=== PATIENT | male | born 1960 | race Two or more races ===

== ENCOUNTER 2016-09-02 04:11 | Emergency (ER) | payer BC, OTHER ==
--- NOTE | 2016-09-02 04:34 | PDOC ---
History of Present Illness - General History Source: Patient Exam Limitations: No Limitations - History of Present Illness Initial Comments: 09/02/16 04:55 The patient is a 56 year old male, with significant past medical history of HTN , who presents today via ambulance complaining of shortness of breath while out with friends drinking rum. The patient states that he cannot catch his breath or take in a full breath. He reports that this has happened to him before 1-2 months ago. He denies chest pain, cough. He denies abdominal pain. He denies fever, chills, nausea, vomiting. Allergies: none reported PCP- Dr. Phillip <Debra Ledezma - Last Filed: 09/02/16 04:55> <Madison Santos - Last Filed: 09/02/16 07:02> <Moira Dey - Last Filed: 09/02/16 09:04> - General Chief Complaint: Shortness of Breath Stated Complaint: WEAKNESS Time Seen by Provider: 09/02/16 04:34 Past History <Debra Ledezma - Last Filed: 09/02/16 04:55> - Psycho/Social/Smoking Cessation Hx Suicidal Ideation: No Smoking Status: Yes Smoking History: Former smoker Number of Cigarettes Smoked Daily: 0 <Madison Santos - Last Filed: 09/02/16 07:02> <Moira Dey - Last Filed: 09/02/16 09:04> - Past Medical History Allergies/Adverse Reactions: Allergies Allergy/AdvReac Type Severity Reaction Status Date / Time No Known Allergies Allergy Verified 09/02/16 05:36 Home Medications: Ambulatory Orders Amlodipine Besylate [Norvasc -] 5 mg PO DAILY 09/02/16 Review of Systems - Review of Systems Able to Perform ROS?: Yes Comments:: 09/02/16 04:55 GENERAL/CONSTITUTIONAL: No fever or chills. No weakness. HEAD, EYES, EARS, NOSE AND THROAT: No change in vision. No ear pain or discharge. No sore throat. CARDIOVASCULAR: No chest pain. RESPIRATORY: +shortness of breath. No cough, wheezing, or hemoptysis. GASTROINTESTINAL: No nausea, vomiting, diarrhea or constipation. GENITOURINARY: No dysuria, frequency, or change in urination. MUSCULOSKELETAL: No joint or muscle swelling or pain. No neck or back pain. SKIN: No rash NEUROLOGIC: No headache, vertigo, loss of consciousness, or change in strength/ sensation. ENDOCRINE: No increased thirst. No abnormal weight change. HEMATOLOGIC/LYMPHATIC: No anemia, easy bleeding, or history of blood clots. ALLERGIC/IMMUNOLOGIC: No hives or skin allergy. <Debra Ledezma - Last Filed: 09/02/16 04:55> *Physical Exam - Physical Exam Comments: 09/02/16 04:55 GENERAL: Awake, alert, and fully oriented, in no acute distress HEAD: No signs of trauma EYES: PERRLA, EOMI, sclera anicteric, conjunctiva clear ENT: Auricles normal inspection, hearing grossly normal, nares patent, oropharynx clear without exudates. Moist mucosa NECK: Normal ROM, supple, no lymphadenopathy, JVD, or masses LUNGS: Breath sounds equal, clear to auscultation bilaterally. No wheezes, and no crackles HEART: Regular rate and rhythm, normal S1 and S2, no murmurs, rubs or gallops ABDOMEN: +Abdomen is tense. Nontender, normoactive bowel sounds. No guarding, no rebound. No masses EXTREMITIES: Normal range of motion, no edema. No clubbing or cyanosis. No cords, erythema, or tenderness NEUROLOGICAL: Cranial nerves II through XII grossly intact. Normal speech, normal gait SKIN: Warm, Dry, normal turgor, no rashes or lesions noted. <Debra Ledezma - Last Filed: 09/02/16 04:55> - Vital Signs Last Vital Signs Temp Pulse Resp BP Pulse Ox 97.6 F 80 12 147/74 100 09/02/16 05:36 09/02/16 05:36 09/02/16 05:36 09/02/16 05:36 09/02/16 05:36 <Moira Dey - Last Filed: 09/02/16 09:04> ED Treatment Course - LABORATORY CBC & Chemistry Diagram: 09/02/16 06:10 09/02/16 06:10 <Madison Santos - Last Filed: 09/02/16 07:02> - LABORATORY CBC & Chemistry Diagram: 09/02/16 06:10 09/02/16 06:10 - ADDITIONAL ORDERS Additional order review: Laboratory Results 09/02/16 09/02/16 09/02/16 06:10 06:10 06:10 INR Sodium Cancelled Potassium Cancelled Chloride Cancelled Carbon Dioxide Cancelled Anion Gap Cancelled BUN Cancelled Creatinine Cancelled Creat Clearance w eGFR Cancelled Random Glucose Cancelled Calcium Cancelled Total Bilirubin Cancelled AST Cancelled ALT Cancelled Alkaline Phosphatase Cancelled Creatine Kinase Creatine Kinase Index CK-MB (CK-2) CK-MB (CK-2) Rel Index Cancelled Troponin I B-Natriuretic Peptide Total Protein Cancelled Albumin Cancelled Alcohol, Quantitative 29.3 H* 09/02/16 09/02/16 09/02/16 06:10 06:10 06:10 INR 1.02 Sodium 142 Potassium 4.2 Chloride 108 H Carbon Dioxide 22 Anion Gap 12 BUN 21 H Creatinine 0.9 Creat Clearance w eGFR > 60 Random Glucose 104 Calcium 8.8 Total Bilirubin 0.2 AST 32 ALT 45 Alkaline Phosphatase 87 Creatine Kinase 345 H Creatine Kinase Index 1.1 CK-MB (CK-2) 3.834 H CK-MB (CK-2) Rel Index Troponin I < 0.02 B-Natriuretic Peptide Cancelled 12.44 Total Protein 7.5 Albumin 3.9 Alcohol, Quantitative 09/02/16 06:10 RBC 5.26 MCV 92.1 MCHC 33.3 RDW 13.7 MPV 8.4 Neutrophils % 77.2 Lymphocytes % 13.7 Monocytes % 7.8 Eosinophils % 0.7 Basophils % 0.6 - Medications Given in the ED: ED Medications Discontinued Medications Generic Name Dose Route Start Last Admin Trade Name Karena PRN Reason Stop Dose Admin Albuterol/Ipratropium 1 amp 09/02/16 04:42 09/02/16 06:22 Duoneb - NEB 09/02/16 04:43 1 amp ONCE ONE Administration Furosemide 40 mg 09/02/16 04:47 09/02/16 06:22 Lasix Injection - IVPUSH 09/02/16 04:48 40 mg ONCE ONE Administration <Moira Dey - Last Filed: 09/02/16 09:04> Medical Decision Making - Medical Decision Making 09/02/16 05:00 Pt pulled off his BiPAP 09/02/16 06:58 Pt comes with SOB. He is alcohol intoxicated. States that on occasion he goes out and drinks heavily with friends. Denied being an alcoholic and claims not to know if he has any liver problems. States that he only has HTN. Pt is breathing heavily, oxygenation on nasal cannula is 97%. Pt has copd. CXR demonstrates congestion; lasix ordered, as well as duoneb. Pt is refusing BiPAP. CBC is normal. Chem is pending. Pt will be signed out to the day ER doc for disposition. 09/02/16 07:02 EKG pending <Madison Santos - Last Filed: 09/02/16 07:02> - Medical Decision Making 09/02/16 09:03 Pt improved. Asymptomatic at present, ambulatory without SOB. +Stable gait. Labs wnl except alcohol level. CXR no acute findings. Stable for DC home. <Moira Dey - Last Filed: 09/02/16 09:04> *DC/Admit/Observation/Transfer - Attestations Scribe Attestion: 09/02/16 04:56 Documentation prepared by BRE Sims, acting as biomedical electronics technician for Madison Santos MD. <Debra Ledezma - Last Filed: 09/02/16 04:55> <Madison Santos - Last Filed: 09/02/16 07:02> - Discharge Dispostion Admit: No <Moira Dey - Last Filed: 09/02/16 09:04> Diagnosis at time of Disposition: Shortness of breath - Discharge Dispostion Disposition: HOME Condition at time of disposition: Improved - Referrals Referrals: Ector Phillip MD [Primary Care Provider] -
[2016-09-02] MEDS ORDERED: ALBUTEROL SO4 2.5/IPRATROPIUM 0.5 INH SOL 3 ML VIAL.NEB. NEB ONE ×2 (04:42→06:15)
[2016-09-02] MEDS ORDERED: FUROSEMIDE 40 MG/4 ML INJECTABLE VIAL IVPUSH ONE (04:47)
[2016-09-02 05:38] VITALS: TEMP 97.6; BMI 25.8
[2016-09-02] MEDS ORDERED: FUROSEMIDE 40 MG/4 ML INJECTABLE VIAL ONE (06:15)
[2016-09-02 06:20] LABS: BASOPHIL 0.6 % (0-2.0); EOSINOPHIL 0.7 % (0-4.5); MCH 30.6 pg (25.7-33.7); MCHC 33.3 g/dl (32.0-35.9); MEAN CELL VOLUME 92.1 fl (80-96); MEAN PLT VOLUME 8.4 fl (7.5-11.1); NEUTROPHILS 77.2 % (42.8-82.8); PLATELET COUNT 231 K/MM3 (134-434); RDW 13.7 % (11.9-15.9); WHITE BLOOD COUNT 6.8 K/mm3 (4.0-10.0)
[2016-09-02 06:38] LABS: INR 1.02 (0.82-1.09); PROTHROMBIN TIME (PATIENT) 11.2 SEC (9.98-11.88)
[2016-09-02 06:56] LABS: TROPONIN I < 0.02 ng/ml (0.00-0.05)
[2016-09-02 07:54] LABS: ALBUMIN 3.9 g/dl (3.4-5.0); ANION GAP 12 (8-16); BILIRUBIN,TOTAL 0.2 mg/dL (0.2-1.0); CALCIUM 8.8 mg/dL (8.5-10.1); CO2 22 mmol/L (21-32); CREATININE 0.9 mg/dL (0.7-1.3); GLUCOSE,RANDOM 104 mg/dL (74-106); SGOT/AST 32 U/L (15-37); SGPT/ALT 45 U/L (12-78); TOT PROT 7.5 g/dl (6.4-8.2)
[2016-09-02 07:56] LABS: ALK PHOS 87 U/L (45-117)
[2016-09-02 09:12] VITALS: BP 145/82; PULSE 78
--- NOTE | 2016-09-02 10:10 | EKG ---
Test Reason : Blood Pressure : / mmHG Vent. Rate : 085 BPM Atrial Rate : 085 BPM P-R Int : 150 ms QRS Dur : 086 ms QT Int : 348 ms P-R-T Axes : 066 058 -38 degrees QTc Int : 414 ms NORMAL SINUS RHYTHM NONSPECIFIC T WAVE ABNORMALITY ABNORMAL ECG WHEN COMPARED WITH ECG OF 09-MAR-2010 22:46, NO SIGNIFICANT CHANGE WAS FOUND Confirmed by ZAYNAB ESPARZA MD ([id number]) on 09/02/2016 10:10:23 AM Referred By: Confirmed By:ZAYNAB ESPARZA MD
== END 2016-09-02 09:12 | disposition home or self-care (01) ==
LOC: JER 04:11
PROC: 3E0F7GC Introduction of Other Therapeutic Substance into Respiratory Tract, Via Natural or Artificial Opening (ICD-10-PCS; principal; 2016-09-02)
PROC: 3E033GC Introduction of Other Therapeutic Substance into Peripheral Vein, Percutaneous Approach (ICD-10-PCS; 2016-09-02)
DX: J44.9 Chronic obstructive pulmonary disease, unspecified (principal); R06.02 Shortness of breath; I10 Essential (primary) hypertension; F10.120 Alcohol abuse with intoxication, uncomplicated; Y90.1 Blood alcohol level of 20-39 mg/100 ml
CPT/HCPCS: 36415; 71010-TC; 80053; 80307; 82550; 82553; 83880; 84484; 85025; 85610; 87040; 93005; 93010; 94640; 96374; 99283-25

== ENCOUNTER 2020-08-21 01:45 | Emergency (ER) | payer OTHER ==
[2020-08-21 02:09] VITALS: BP 159/64; PULSE 90; TEMP 97.8; BMI 31.0
== END 2020-08-21 03:27 | disposition home or self-care (01) ==
LOC: JER 01:45
DX: R06.02 Shortness of breath (principal)
CPT/HCPCS: 99283-25

== ENCOUNTER 2022-05-20 16:47 | Emergency (ER) | payer OTHER ==
[2022-05-20 16:59] VITALS: TEMP 98.2; BMI 31.7
[2022-05-20] MEDS ORDERED: ACETAMINOPHEN 1000 MG/100 ML BAG IVPB ONE (17:08)
[2022-05-20] MEDS ORDERED: ACETAMINOPHEN INJECTION 100 ML IVPB ONE (17:44)
[2022-05-20 18:18] LABS: BASO % 0.7 % (0-2.0); EOS % 4.1 % (0-4.5); HEMATOCRIT 44.3 % (35.4-49); LYMPH % 27.2 % (8-40); MCH 30.3 pg (25.7-33.7); MCHC 33.8 g/dl (32.0-35.9); MEAN CELL VOLUME 89.8 fl (80-96); MEAN PLT VOLUME 8.7 fl (7.5-11.1); MONO % 9.5 % (3.8-10.2); NEUT % 58.5 % (42.8-82.8); PLATELET COUNT 220 10^3/uL (134-434); RBC 4.94 M/mm3 (4.00-5.60); RDW 13.6 % (11.9-15.9); WHITE BLOOD COUNT 6.4 K/mm3 (4.0-10.0)
[2022-05-20 18:29] LABS: INR 1.06 (0.83-1.09); PROTHROMBIN TIME (PATIENT) 12.3 SEC (9.7-13.0)
[2022-05-20 18:39] LABS: CALCIUM 8.6 mg/dL (8.5-10.1)
[2022-05-20 18:40] LABS: ALBUMIN 3.5 g/dl (3.4-5.0); BLOOD UREA NITROGEN 15.3 mg/dL (7-18); MAGNESIUM 1.9 mg/dL (1.8-2.4)
[2022-05-20 18:43] LABS: CREATININE 0.7 mg/dL (0.55-1.3)
[2022-05-20 18:44] LABS: BILIRUBIN,TOTAL 0.3 mg/dL (0.2-1)
[2022-05-20] MEDS ORDERED: ASPIRIN 81 MG CHEWABLE TABLETS PO ONE (19:04)
[2022-05-20] MEDS ORDERED: ASPIRIN 81 MG CHEWABLE TABLETS ONE (19:43)
[2022-05-20 19:51] VITALS: BP 146/77; PULSE 76; RESP 18
== END 2022-05-20 20:55 | disposition left against medical advice (07) ==
LOC: JER 16:47
PROC: 3E033NZ Introduction of Analgesics, Hypnotics, Sedatives into Peripheral Vein, Percutaneous Approach (ICD-10-PCS; principal; 2022-05-20)
DX: R07.9 Chest pain, unspecified (principal); Z20.822 Contact with and (suspected) exposure to COVID-19
CPT/HCPCS: 36415; 71046-TC-FY; 80053; 83735; 83880; 84484; 85025; 85610; 86850; 86900; 86901; 93005; 93010; 99285-25; C9803-CS; U0003; U0005